=== PATIENT | male | born 1955 | race Caucasian/White ===

== ENCOUNTER 2017-12-09 05:46 | Day surgery (SDC) | payer MEDICAID ==
[~2017-12-09] VITALS: Ht 175.3 cm; Wt 109.0 kg
[2017-12-09 06:08] VITALS: BP 114/82
[2017-12-09] MEDS ORDERED: METHOTREXATE PO (06:30)
[2017-12-09] MEDS ORDERED: MIDAZOLAM 1 MG/ML, 2ML ONE (06:33)
[2017-12-09] MEDS ORDERED: FENTANYL PF 250 MCG/5ML ONE (06:35)
[2017-12-09] MEDS ORDERED: PROPOFOL 10 MG/ML, 20ML ONE (06:37)
[2017-12-09] MEDS ORDERED: SODIUM CHLORIDE 0.9% PF 10ML ONE (06:38)
[2017-12-09] MEDS ORDERED: CEFAZOLIN 1,000 MG ONE ×2 (06:38)
[2017-12-09] MEDS ORDERED: GLYCOPYRROLATE 0.4 MG/2 ML, 2ML ONE (06:39)
[2017-12-09] MEDS ORDERED: NEOSTIGMINE 1 MG/ML, 10ML ONE (06:39)
[2017-12-09] MEDS ORDERED: LACTATED RINGERS 1,000 ML IV SCH (06:48)
[2017-12-09] MEDS ORDERED: OXYMETAZOLINE NASAL SPRAY 0.05%, 15ML ONE (07:06)
[2017-12-09] MEDS ORDERED: PROMETHAZINE 25 MG/ML, 1ML IV PRN (07:30)
[2017-12-09] MEDS ORDERED: ONDANSETRON 2MG/ML, 2ML IVPush PRN (07:30)
[2017-12-09] MEDS ORDERED: LABETALOL 5MG/ML, 20ML IV PRN (07:30)
[2017-12-09] MEDS ORDERED: HYDROmorphone 1 MG/ML, 1ML IV PRN (07:30)
[2017-12-09] MEDS ORDERED: MEPERIDINE/PF 25MG/0.5ML IVPush PRN (07:30)
[2017-12-09] MEDS ORDERED: ACETAMINOPHEN 325 MG TABLET PO PRN (07:30)
[2017-12-09] MEDS ORDERED: OXYcodone 5 MG/5 ML ORAL.SOL UDC PO PRN (07:30)
[2017-12-09] MEDS ORDERED: FENTANYL PF 100 MCG/2ML IV PRN (07:30)
[2017-12-09] MEDS ORDERED: DEXAMETHASONE 4 MG/ML, 1ML ONE ×2 (07:48)
[2017-12-09] MEDS ORDERED: ACETAMINOPHEN 650 MG/20.3 ML UDC ONE (09:01)
[2017-12-09] MEDS ORDERED: LABETALOL 5MG/ML, 20ML ONE (09:07)
[2017-12-09] MEDS ORDERED: hydrALAzine 20 MG/ML, 1ML ONE (09:23)
[2017-12-09] MEDS: hydrALAzine 20 MG/ML, 1ML IV PRN ×2 (09:24→09:45)
[2017-12-09] MEDS ORDERED: LABETALOL 5MG/ML, 20ML IVPush ONE (13:00)
[2017-12-09] MEDS ORDERED: ROCURONIUM 10 MG/ML,10ML ONE (15:34)
== END 2017-12-09 15:10 ==
LOC: OUT 05:46
PROVIDERS: ATTEND Otolaryngology
DX: J03.90 Acute tonsillitis, unspecified (principal); J35.01 Chronic tonsillitis; Z88.0 Allergy status to penicillin; Z85.118 Personal history of other malignant neoplasm of bronchus and lung; F32.9 Major depressive disorder, single episode, unspecified
CPT/HCPCS: 42821; 88304; 88305; 88329; 93005; J0360; J0690; J1100; J2250; J2704; J2710; J3010; J7120